=== PATIENT | male | born 1995 | race Hispanic/Latino ===

== ENCOUNTER 2020-10-06 18:34 | Emergency (ER) | payer OTHER ==
[2020-10-06] MEDS ORDERED: Lidocaine 1% (PF) 30 ML VIAL ONE (19:28)
[2020-10-06] MEDS ORDERED: Bacitracin 1 PK ONE (20:18)
== END 2020-10-06 20:44 | disposition home or self-care (01) ==
LOC: ERS 18:34
DX: S01.81XA Laceration without foreign body of other part of head, initial encounter (principal); Y00.XXXA Assault by blunt object, initial encounter
CPT/HCPCS: 12011; J2001

== ENCOUNTER 2021-02-06 19:33 | Emergency (ER) | payer OTHER ==
[2021-02-06] MEDS ORDERED: Ketorolac Tromethamine 30 MG/ML VIAL ONE (20:49)
== END 2021-02-06 21:13 | disposition home or self-care (01) ==
LOC: ERS 19:33
DX: M25.511 Pain in right shoulder (principal)
CPT/HCPCS: 96372; J1885